=== PATIENT | female | born 1980 | race Caucasian/White ===

== ENCOUNTER → 2021-04-07 | Day surgery (SDC) | payer OTHER ==
[~2021-04-07] VITALS: Ht 165.1 cm; Wt 122.5 kg
[~2021-04-07] MED LIST: ASPIRIN325 MG PO; COMPAZINE10 M1 PO; DAILY VALUE1 EACH PO; IMODIUM2 MG PO; LOPRESSOR25 MG PO; MAGICMW SSW; SPRYCEL100 MG PO; VITAMIN D3125 MC2 PO; ZOLOFT100 MG PO
[2021-04-07 07:56] LABS: HCT 37.3 % (37.0-47.0); HGB 12.2 g/dl (12.5-16.0); MCH 30.3 pg (25.0-31.0); MCHC 32.7 g/dL (32.0-36.0); MCV 92.6 fL (78.0-100.0); MPV 9.2 fL (6.0-9.5); RBC 4.03 M/uL (4.20-5.40); WBC 6.9 K/uL (4.0-10.5)
[2021-04-07 08:18] LABS: ALBUMIN 3.7 g/dL (3.4-5.0); BILIRUBIN - TOTAL 0.2 mg/dL (0.2-1.0); BUN/CREAT RATIO (CALC) 15.4 RATIO; CREATININE 0.65 mg/dL (0.51-0.95); GLOBULIN (CALCULATION) 3.8 g/dL; TOTAL PROTEIN 7.5 g/dL (6.4-8.2)
== END | disposition home or self-care (01) ==
LOC: FAS 07:00
PROVIDERS: Surgery
DX: C92.10 Chronic myeloid leukemia, BCR/ABL-positive, not having achieved remission (principal); D70.4 Cyclic neutropenia; D47.3 Essential (hemorrhagic) thrombocythemia; D64.9 Anemia, unspecified; I10 Essential (primary) hypertension; K21.9 Gastro-esophageal reflux disease without esophagitis; Z86.73 Personal history of transient ischemic attack (TIA), and cerebral infarction without residual deficits; Z79.82 Long term (current) use of aspirin; Z79.899 Other long term (current) drug therapy
CPT/HCPCS: 36415; 80053; J1642; J1885; J2250; J2704; J7120

== ENCOUNTER → 2021-12-09 | Day surgery (SDC) | payer OTHER ==
[~2021-12-09] VITALS: Ht 165.1 cm; Wt 118.8 kg
[~2021-12-09] MED LIST changes: +BENTYL10 MG PO; +LASIX20 MG PO; +MAG-OXIDE 400M400 MG PO; +ONDANSETRON ODT8 MG PO; +PERCOCET 5-3251 EACH PO; +POTASSIUM600 MG PO
[2021-12-09 09:11] LABS: HCT 40.4 % (37.0-47.0); HGB 13.8 g/dl (12.5-16.0); MCH 30.6 pg (25.0-31.0); MCHC 34.2 g/dL (32.0-36.0); MCV 89.6 fL (78.0-100.0); MPV 9.3 fL (6.0-9.5); RBC 4.51 M/uL (4.20-5.40); RDW 12.5 % (11.5-14.0); WBC 9.8 K/uL (4.0-10.5)
== END | disposition home or self-care (01) ==
LOC: FAS 08:01
PROVIDERS: Surgery
DX: D24.2 Benign neoplasm of left breast (principal); N62 Hypertrophy of breast; N64.52 Nipple discharge; R94.31 Abnormal electrocardiogram [ECG] [EKG]; I10 Essential (primary) hypertension; Z80.41 Family history of malignant neoplasm of ovary; Z80.0 Family history of malignant neoplasm of digestive organs; Z87.891 Personal history of nicotine dependence
CPT/HCPCS: 36415; 93005; J1170; J2250; J2405; J2704; J3010; J7120